=== PATIENT | male | born 1960 | race Caucasian/White ===

== ENCOUNTER 2017-12-27 06:55 | Observation (INO) | payer OTHER ==
[2017-12-27] MEDS ORDERED: NS 1,000 ML IV ONE (06:58)
[2017-12-27 07:41] LABS: PLATELET COUNT 204 10^3/uL (150-400)
[2017-12-27 07:47] LABS: INR 0.99 (0.83-1.16); PROTIME(PATIENT) 13.3 SEC (12.0-15.0)
[2017-12-27] MEDS ORDERED: HEPARIN 10,000 UNIT/10 ML MDV (1,000 UNIT/ML) ONE ×2 (08:24→11:08)
[2017-12-27] MEDS ORDERED: LIDOCAINE 1% 300 MG/30 ML SDV ONE (08:24)
[2017-12-27] MEDS ORDERED: HEPARIN/DEXTROSE 25,000 UNIT/500 ML BAG ONE (08:24)
[2017-12-27] MEDS ORDERED: IOPAMIDOL (ISOVUE-300) 100 ML BTL ONE ×2 (08:25→10:59)
[2017-12-27] MEDS ORDERED: BUPIVACAINE 0.75% 10 ML SDV ONE (08:25)
[2017-12-27] MEDS ORDERED: MIDAZOLAM 2 MG/2 ML VIAL IVP ONE (08:33)
--- NOTE | 2017-12-27 08:34 | PDANEPAE ---
ANE History of Present Illness svt ANE Past Medical History - Pulmonary History Hx Sleep Apnea: No ANE Review of Systems Review of Systems: ANE Patient History - Allergies Allergies/Adverse Reactions: No Known Allergies Allergy (Unverified 12/20/17 10:43) - Home Medications Home Medications: Herbals/Supplements -Info Only 1 ea PO DAILY 12/20/17 [Last Taken 12/26/17 20:00 ] Hydrocodone/Acetaminophen [Vicodin 5-300 mg Tablet] 1 each PO DAILY PRN [Last Taken 07/24/17 08:00] Lisinopril [Zestril 10 mg (*)] 10 mg PO DAILY 12/20/17 [Last Taken 12/26/17 08: 00] Brandon-3 Fatty Acids [Fish Oil 1000 mg (*)] 1,000 mg PO DAILY 12/20/17 [Last Taken 12/26/17 08:00] Omeprazole 20 mg PO DAILY 12/20/17 [Last Taken 12/26/17 08:00] Rivaroxaban [Xarelto 10mg (*)] 20 mg PO HS 12/20/17 [Last Taken 12/24/17 20:00] Rosuvastatin Calcium [Crestor 20mg (*)] 20 mg PO HS 12/20/17 [Last Taken 21:00] Sildenafil Citrate [Viagra 25 MG (*)] 25 mg PO AD PRN 12/20/17 [Last Taken 12/10 20:00] - Smoking Hx Smoking Status: Former smoker ANE Labs/Vital Signs - Labs Result Diagrams: 12/27/17 07:38 12/27/17 07:38 - Vital Signs Height: 191 cm Weight: 122.5 kg ANE Physical Exam - Airway Neck exam: FROM Mallampati Score: Class 1 Mouth exam: normal dental/mouth exam - Pulmonary Pulmonary: no respiratory distress - Cardiovascular Cardiovascular: regular rate and rhythym - ASA Status ASA Status: III ANE Anesthesia Plan Anesthesia Plan: general endotracheal anesthesia
[2017-12-27] MEDS ORDERED: fentaNYL 100 MCG/2 ML INJ ONE ×6 (08:42→12:20)
[2017-12-27] MEDS ORDERED: PROPOFOL 200 MG/20 ML VIAL ONE ×2 (08:43→09:12)
[2017-12-27] MEDS ORDERED: ISOPROTERENOL HCL/D5W 0.2 MG/50 ML BAG IV ONE (08:45)
--- NOTE | 2017-12-27 08:51 | PDGENHP ---
History & Physical Chief Complaint: symptomatic afib and afl Relevant Physical Exam: s1s2 rrr cta ao3 Cardiorespiratory Assessment: prior pvi at outside institution. plan redo pvi, ablate triggers and ablate ct isthmus
[2017-12-27] MEDS ORDERED: DEXAMETHASONE 4 MG/ML VIAL ONE (09:12)
[2017-12-27] MEDS ORDERED: ONDANSETRON 4 MG/2 ML VIAL ONE ×2 (09:12→13:28)
[2017-12-27] MEDS ORDERED: ROCURONIUM 50 MG/5 ML VIAL ONE (09:12)
--- NOTE | 2017-12-27 09:17 | CPEKG ---
Test Reason : OPEN Blood Pressure : / mmHG Vent. Rate : 055 BPM Atrial Rate : 055 BPM P-R Int : 196 ms QRS Dur : 098 ms QT Int : 403 ms P-R-T Axes : 050 041 019 degrees QTc Int : 386 ms Sinus rhythm Confirmed by Alireza Romero ([id number]) on 12/27/2017 9:16:44 AM Referred By: Confirmed By:Alireza Romero
[2017-12-27] MEDS ORDERED: HYDROCODONE/APAP 5/325 TAB PO PRN (10:00)
[2017-12-27] MEDS ORDERED: DEXAMETHASONE 4 MG/ML VIAL IVP PRN (10:00)
[2017-12-27] MEDS ORDERED: PROMETHAZINE HCL 25 MG/ML INJ IVP PRN (10:00)
[2017-12-27] MEDS ORDERED: fentaNYL 100 MCG/2 ML INJ IVP PRN (10:00)
[2017-12-27] MEDS ORDERED: NALOXONE HCL 0.4 MG/ML INJ IVP PRN (10:00)
[2017-12-27] MEDS ORDERED: HYDROmorphONE/DILAUDID 1 MG/ML INJ IVP PRN (10:00)
[2017-12-27] MEDS ORDERED: PROTAMINE SULFATE 50 MG/5 ML VIAL IVP ONE (12:23)
--- NOTE | 2017-12-27 12:43 | EPPROC ---
Electrophysiology Procedure Note: ELECTROPHYSIOLOGIC STUDY AND BALLOON-CATHETER MEDIATED CRYOABLATION FOR PAROXYSMAL ATRIAL FIBRILLATION AND RF ABLATION FOR ATRIAL FLUTTER Procedures performed: 79256-69 EP evaluation with RA/RV/LA pace/record, with arrhythmia induction 51468-29 EP evaluation with RA/RV pace record, insert/reposition catheter, with arrhythmia induction 46889 Atrial fibrillation ablation Second arrhythmia Intracardiac echocardiogram Transseptal puncture Fluoroscopy INDICATION: Paroxysmal atrial fibrillation Atrial flutter Prior ablation at outside institution PROCEDURE: The patient arrived in the Electrophysiology Laboratory in the fasting state. The right groin, left groin and right infraclavicular area were prepped and draped in the usual sterile fashion. Anesthesiologist administered general anesthesia Dr. Kerry Wagner . All catheters were placed percutaneously using the Seldinger technique and advanced into position under fluoroscopic guidance. One #7 Congolese deflectable octapolar electrode catheter was placed in the His-bundle position via the left femoral vein (2mm spacing, IVC electrode for unipolar recordings). This catheter was placed in the coronary sinus after transseptal puncture and later placed in the SVC-R subclavian vein junction to pace the right phrenic nerve during right pulmonary vein ablation. One #8 Congolese AcuNaV ultrasound catheter was placed in the left femoral vein and advanced into the right atrium. Programmed stimulation was performed from the right atrium, left atrium (CS) and right ventricle. Intracardiac echo evaluation of the left atrium and pulmonary veins was performed. Baseline ACT was drawn and heparin bolus was administered and heparin drip was started prior to transseptal puncture. ACT was checked every 15 minutes and maintained in the range of 350-400 seconds. One 14Fr short sheath was placed in the right femoral vein. One 8Fr SL1 sheath was advanced into the right atrium via the 14Fr short sheath. Transseptal puncture was performed under intracardiac ultrasound, fluoroscopic and hemodynamic guidance placing the sheath into the left atrium. Wakeman RF needle ( C0 curve) was used. The mean left atrial pressure was 11 mmHg. SL1 sheath was changed to Mobi sheath. 3D map of left atrial and pulmonary veins was performed using PentaRay catheter. All 4 PV were reconnected and there was very little fractionation in posterior LA except posterior to RIPV. The Mobi sheath was exchanged for a Devshoptronic Flexcath sheath using an Amplatz stiff guide wire. A 28 mm Cryoballoon catheter with a 20 mm Achieve catheter was placed via the sheath into the left atrium. Intracardiac ultrasound and PV angiograms were used to assist in placing the mapping catheter at the antrum of the pulmonary veins. All pulmonary veins were isolated successfully using cryoballoon ablation using freeze/thaw/freeze cycles at 2-3-minute intervals, with good [id number] of isolation. Coumadin ridge/Ligament of Jose region was ablated. Pre and post pulmonary vein recordings were measured on the spiral Achieve catheter to ensure complete pulmonary vein isolation. During the right-sided ablation, phrenic nerve pacing was performed to assess the phrenic nerve strength ( manually and with ICE visualization of liver movement during phrenic capture) and the phrenic nerve was intact throughout the right-sided ablation and at the end of the procedure. Esophagus was closest to RIPV, single lesion was applied to RIPV. LIPV was difficult to isolate and needed to be isolated segmentally. An esophageal temperature probe (12 electrode, Circa) was placed by the anesthesiologist at the beginning of the procedure. Esophageal temperature was monitored continuously and cryoablation was interrupted if esophageal temperature was <15 C. Cryoapplications 18 total cryoablation time 2322 s. Sheath was withdrawn into RA, changed to Mobi sheath. 3.5 mm STSF irrigated catheter was placed into the RA and ablation performed at the cavotricupsid isthmus. Bidirectional conduction block was achieved. Septal to lateral conduction time 145 s. ICE imaging post ablation was consistent with pre ablation imaging with no changes noted, moreover there was no left atrial/left ventricular thrombus and no pericardial effusion. The catheters were withdrawn. Protamine was given. The sheaths were removed and subcutaneous pursestring suture and manual pressure was used for hemostasis. The patient was recovered from anesthesia. There were no complications. The patient was arousable and moving all four extremities at the end of the procedure. CONCLUSIONS: 1. Paroxysmal atrial fibrillation. 2. Successful pulmonary vein re- isolation procedure (left and right pulmonary vein antrum) using cryoballoon ablation. 3. Atrial flutter. Successful ablation with bidirectional block achieved across cavotricupsid isthmus. 4. No apparent complications. Patient Problems: Problems Problem Status Onset Atrial fibrillation and flutter Acute
[2017-12-27] MEDS ORDERED: HYDROCODONE PO PRN (12:47)
[2017-12-27] MEDS ORDERED: ACETAMINOPHEN PO PRN (12:47)
--- NOTE | 2017-12-27 13:16 | POSTANESTH ---
Post Anesthetic Evaluation Cardiovascular Status: Normal, Stable Respiratory Status: Normal, Stable Level of Consciousness/Mental Status: Can Participate in Eval Pain Control: Adequate, Prn Tx Ordered Nausea/Vomiting Control: Adequate, Prn Tx Ordered Complications Possibly Related to Anesthesia: None Noted
[2017-12-27] MEDS ORDERED: ONDANSETRON 4 MG/2 ML VIAL IVP PRN (13:50)
[2017-12-27] MEDS: HYDROCODONE/APAP 5/325 TAB PO PRN ×3 (13:55→21:15)
--- NOTE | 2017-12-27 15:22 | ASMTCMCOM ---
CM Note CM Note Notes: 57yr old male admitted for Afib/Flutter. Had an Ablation. Will discharge home with . No discharge needs anticipated. Date Signed: 12/27/2017 03:22 PM Electronically Signed By:Tali Randolph LCSW
--- NOTE | 2017-12-27 18:15 | CPEKG ---
Test Reason : OPEN Blood Pressure : / mmHG Vent. Rate : 063 BPM Atrial Rate : 063 BPM P-R Int : 184 ms QRS Dur : 101 ms QT Int : 421 ms P-R-T Axes : -20 101 -05 degrees QTc Int : 431 ms Sinus rhythm Probable right ventricular hypertrophy Borderline T abnormalities, inferior leads Minimal ST elevation, anterior leads Confirmed by Alireza Romero ([id number]) on 12/27/2017 6:14:38 PM Referred By: Confirmed By:Alireza Romero
[2017-12-27] MEDS ORDERED: RIVAROXABAN 10 MG TAB PO SCH ×2 (19:00→21:00)
[2017-12-27] MEDS ORDERED: ROSUVASTATIN CALCIUM 20 MG TAB PO SCH (21:00)
[2017-12-28] MEDS: HYDROCODONE/APAP 5/325 TAB PO PRN ×2 (00:25→04:39)
[2017-12-28 06:04] LABS: PLATELET COUNT 224 10^3/uL (150-400)
[2017-12-28] MEDS ORDERED: PANTOPRAZOLE SODIUM 40 MG TAB PO SCH ×2 (09:00)
[2017-12-28] MEDS ORDERED: LISINOPRIL 10 MG TAB PO SCH (09:00)
--- NOTE | 2017-12-28 10:01 | ECHO ---
[email or web address] [address] [address] Main: [phone] Fax: Transthoracic Echocardiogram Name: JESSICA VALLADARES MR#: [id number] Study Date: 12/28/2017 Study Time: 08:19 AM Date of : 1960 Age: 57 year(s) Height: 190.5 cm (75 in.) Weight: 122.47 kg (270 lb.) BSA: 2.49 m2 Gender: Male Examination: Echo Indication: Post EP Image Quality: Contrast: Requested by: Cristiano Shah BP: 140 mmHg/76 mmHg Heart Rate: Rhythm: Indication: Post EP Procedure Staff Director Loan: Freddie Castro RDCS Reading Physician: Arturo Knapp MD Requesting Provider: Conclusions: Normal study Measurements: Chambers Valvular Assessment AV/MV Valvular Assessment TV/PV Normal Normal Normal Name Value Range Name Value Range Name Value Range Ao Critsela (MM): 3.0 cm (2.2 cm-3.7 AV Vmax: 1.40 m/s (1 m/s-1.7 PV Vmax: 0.92 m/s (0.6 m/s-0.9 cm) m/s) m/s) IVSd (2D): 1.2 cm (0.6 cm-1.1 AV maxP mmHg ( - ) PV PGmax: 3 mmHg ( - ) cm) LVOT Vmax: 1.29 m/s (0.7 m/s-1.1 LVDd (2D): 4.3 cm (4.2 cm-5.9 m/s) cm) MV E Vmax: 1.08 m/s ( - ) LVDs (2D): 2.6 cm (2.1 cm-4 MV A Vmax: 0.59 m/s ( - ) cm) MV E/A: 1.83 ( - ) LVPWd (2D): 1.2 cm (0.6 cm-1 cm) LVEF (2D): 72 (>=54 %) Continued Measurements: Chambers Valvular Assessment AV/MV Name Value Name Value LADs Lon.1 cm MV E' Septal: 0.06 m/s LA Area: 21.5 cm2 MV E/E' Septal: 18.20 LA Volume: 74 ml MV E/E' Lateral: 13.30 LA Volume Index: 29.7 ml/m2 Findings: Left Ventricle: Patient: JESSICA VALLADARES Study Date: 12/28/2017 Page 1 of 2 08:19 AM Normal size left ventricle. No LV hypertrophy. Normal global systolic LV function. EF is 72 %. No regional wall motion abnormality. Diastolic dysfunction is present. . Right Ventricle: Normal size right ventricle. Normal RV function. Left Atrium: The left atrium is normal in size. Right Atrium: The right atrium is normal in size. Mitral Valve: The mitral valve is normal in appearance and function. There is no mitral valve regurgitation. Aortic Valve: The aortic valve is normal in appearance and function. There is no aortic valve regurgitation. Tricuspid Valve: The tricuspid valve is normal in appearance and function. The pulmonary artery pressure is normal. Pulmonic Valve: The pulmonic valve is normal in appearance and function. Aorta: The aorta is normal. Pericardium: No pericardial effusion. (No Signature Object) Patient: JESSICA VALLADARES Study Date: 12/28/2017 Page 2 of 2 08:19 AM [id number]
--- NOTE | 2017-12-28 12:01 | CPEKG ---
Test Reason : OPEN Blood Pressure : / mmHG Vent. Rate : 066 BPM Atrial Rate : 066 BPM P-R Int : 186 ms QRS Dur : 097 ms QT Int : 387 ms P-R-T Axes : 002 024 020 degrees QTc Int : 406 ms Sinus rhythm Confirmed by Alireza Romero ([id number]) on 12/28/2017 12:00:24 PM Referred By: Confirmed By:Alireza Romero
[2017-12-28 12:24] VITALS: BP 133/76
--- NOTE | 2017-12-28 13:44 | GDS ---
DISCHARGE DIAGNOSES: 1. Paroxysmal atrial fibrillation status post Cryoballoon ablation. 2. Paroxysmal atrial flutter status post radiofrequency ablation. HOSPITAL COURSE: For detailed H and P, please see prior dictation. Briefly, the patient is a 57-yea r-old male with a history of paroxysmal atrial fibrillation, which has been present for the last 8-10 years. He is symptomatic, complaining of palpitations, fatigue, and mental fogginess when in atrial fibrillation. He had a trial of flecainide, sotalol, and propafenone, but was unable to tolerate th elvin medications because of fatigue. He had a consultation with Dr. Cristiano Shah and ultimately decided to proceed with an EP study and ablation. His procedure was performed on December [address] Nanda Shah. He had a Cryoballoon ablation for atrial fibrillation as well as radiofrequency ablation for atrial flutter. The following morning, the patient denied any significant chest discomfort or palpit ations. He was monitored on telemetry and remained in normal sinus rhythm. His EKG the day of disch arge revealed normal sinus rhythm. An echocardiogram showed preserved LV function without any eviden ce of pericardial effusion. An abdominal ultrasound was performed secondary to an echodensity seen during his ablation procedure. There was no visible hepatic mass identified. PHYSICAL EXAMINATION: GENERAL: Patient appears in no acute distress. VITALS: Blood pressure 133/76 . Heart rate 72. Oxygen saturation of 98% on room air. Afebrile. LUNGS: Clear to auscultation. No wheezes, rhonchi, or crackles auscultated. CARDIAC: Regular rate and rhythm without any significant murmurs, rubs, or gallops appreciated. EXTREMITIES: Bilateral groins where access was obtained for the EP study and ablation are clean, intact, without any evidence of infection or hematoma. Sutures were removed at the bedside. DISCHARGE MEDICATIONS: 1. Viagra 25 mg p.r.n. 2. Omeprazole 20 mg daily. 3. Vicodin p.r.n. for back pain. 4. Crestor 20 mg daily. 5. Xarelto 20 mg at bedtime. 6. Fish oil 1000 mg daily. 7. Lisinopril 10 mg daily. 8. Herbal supplement daily. PLAN: The patient is currently stable and ready for discharge home. He has been given groin precaut ions. He will follow up with Dr. Cristiano Shah as planned in 2 weeks. Greater than 30 minutes was spent coordinating the patient's care today. /[id number]/MODL
== END 2017-12-28 12:30 | disposition home or self-care (01) ==
LOC: FCATH 06:55 → F2N 12:43
PROVIDERS: ADMIT Internal Medicine Cardiovascular Disease; ATTEND Internal Medicine Cardiovascular Disease
PROC: 025T3ZZ Destruction of Left Pulmonary Vein, Percutaneous Approach (ICD-10-PCS; principal; 2017-12-27)
PROC: 025S3ZZ Destruction of Right Pulmonary Vein, Percutaneous Approach (ICD-10-PCS; principal; 2017-12-27)
PROC: 02K83ZZ Map Conduction Mechanism, Percutaneous Approach (ICD-10-PCS; principal; 2017-12-27)
PROC: B245ZZ4 Ultrasonography of Left Heart, Transesophageal (ICD-10-PCS; principal; 2017-12-27)
PROC: 02563ZZ Destruction of Right Atrium, Percutaneous Approach (ICD-10-PCS; principal; 2017-12-27)
DX: I48.0 Paroxysmal atrial fibrillation (principal); I48.92 Unspecified atrial flutter; I10 Essential (primary) hypertension; Z87.891 Personal history of nicotine dependence
CPT/HCPCS: 76705; 93005; 93306; 93312; 93613; 93655; 93656; 93662; C1893; G0378; C1730; C1731; C1732; C1733; C1759; C1766; J1100; J1644; J2250; J2270; J2405; J2704; J2720; J3010; Q9967